=== PATIENT | male | born 1975 | race Caucasian/White ===

== ENCOUNTER 2023-09-18 17:36 | Emergency (ER) | payer MEDICAID, OTHER ==
[~2023-09-18] VITALS: Ht 177.8 cm; Wt 88.5 kg
[2023-09-18 17:55] VITALS: BP 119/94; PULSE 80; RESP 19; O2SAT 99
[2023-09-18] MEDS ORDERED: CYCL-837 PO (20:41)
[2023-09-18] MEDS ORDERED: ACE3T PO (20:41)
== END 2023-09-18 21:13 | disposition home or self-care (01) ==
LOC: ER 17:36
DX: S22.049A Unspecified fracture of fourth thoracic vertebra, initial encounter for closed fracture (principal); W18.39XA Other fall on same level, initial encounter; Y93.89 Activity, other specified; Y92.69 Other specified industrial and construction area as the place of occurrence of the external cause; Y99.8 Other external cause status
CPT/HCPCS: 72128